=== PATIENT | female | born 1980 | race Caucasian/White ===

== ENCOUNTER 2022-12-03 08:45 | Emergency (ER) | payer OTHER, MEDICAID ==
[~2022-12-03] VITALS: Ht 152.4 cm; Wt 72.6 kg
[2022-12-03 08:54] VITALS: TEMP 98.5; O2SAT 99
[2022-12-03 09:15] VITALS: BP 123/71; PULSE 73; RESP 16
[2022-12-03] MEDS ORDERED: IBUPROFEN 800MG TABLET PO ONE (09:15)
[2022-12-03] MEDS ORDERED: HYDROCODONE/ACETAMINOPHEN 5/325MG TABLET PO ONE (09:15)
[2022-12-03] MEDS ORDERED: CELE100C97 MT (10:59)
[2022-12-03] MEDS ORDERED: CYCL5TAB MT (10:59)
== END 2022-12-03 11:44 | disposition home or self-care (01) ==
LOC: ER 08:45
DX: M54.2 Cervicalgia (principal); R07.89 Other chest pain
CPT/HCPCS: 71045; 72040; 99284